=== PATIENT | female | born 1960 | race Caucasian/White ===

== ENCOUNTER 2025-06-23 06:27 | Inpatient (IN) | payer MEDICARE, OTHER ==
[~2025-06-23] VITALS: Ht 165.1 cm; Wt 56.2 kg
[2025-06-23] MEDS ORDERED: LIDOCAINE 1%-EPI 1:100,000 20 ML VIAL ONE (06:49)
[2025-06-23] MEDS ORDERED: FENTANYL PF 250MCG/5ML AMPUL ONE (07:07)
[2025-06-23] MEDS ORDERED: ROCURONIUM BROMIDE 50 MG/5 ML ONE (07:08)
[2025-06-23] MEDS ORDERED: VANCOMYCIN 1 GM VIAL ONE (07:20)
[2025-06-23] MEDS ORDERED: GENTAMICIN 80 MG/2 ML VIAL ONE (07:20)
[2025-06-23] MEDS ORDERED: FENTANYL PF 100MCG/2ML AMPUL ONE (10:18)
[2025-06-23] MEDS ORDERED: IBUPROFEN 400 MG TABLET PO PRN (11:00)
[2025-06-23] MEDS ORDERED: [UNRECOGNIZED DRUG - OTHER] PO (13:43)
[2025-06-23] MEDS ORDERED: SITA100T PO (13:43)
[2025-06-23] MEDS ORDERED: SIMV-46 PO (13:43)
[2025-06-23] MEDS ORDERED: METF-442 PO (13:43)
[2025-06-23] MEDS ORDERED: FLUT1BLS INH (13:43)
[2025-06-23] MEDS ORDERED: MAGNESIUM HYDROXIDE 30 ML UDC PO PRN (14:00)
[2025-06-23] MEDS ORDERED: HYDROCODONE/APAP 5/325MG TABLET PO PRN (14:00)
[2025-06-23] MEDS ORDERED: MAG HYDROX/AL HYDROX/SIMETH 30 ML UDC PO PRN (14:00)
[2025-06-23] MEDS ORDERED: IV NS 0.9% 1,000 ML IV PRN (14:00)
[2025-06-23] MEDS ORDERED: Z GUARD REMEDY 4 OZ OINT TP PRN (14:00)
[2025-06-23] MEDS ORDERED: DEXTROSE 50%-WATER 50 ML DISP.SYRIN IV PRN (14:00)
[2025-06-23] MEDS ORDERED: ONDANSETRON HCL/PF 4 MG/2 ML VIAL IVP PRN (14:00)
[2025-06-23] MEDS ORDERED: ACETAMINOPHEN 325 MG TABLET PO PRN (14:00)
[2025-06-23] MEDS: HYDROCODONE/APAP 10/325MG TABLET PO PRN (14:17)
[2025-06-23] MEDS: PANTOPRAZOLE 40 MG TABLET.DR PO SCH (14:18)
[2025-06-23] MEDS: BLOOD SUGAR DIAGNOSTIC 1 EACH STRIP IN SCH (16:49)
[2025-06-23] MEDS: INSULIN REGULAR, HUMAN 100 UNIT/ML 3 ML VIAL SQ PRN (16:50)
[2025-06-23 17:02] VITALS: BP 121/66; TEMP 98.1; O2SAT 97
[2025-06-23] MEDS ORDERED: HYDR-3972 PO (18:25)
== END 2025-06-23 18:37 | disposition home or self-care (01) | DRG 585 ==
LOC: DS 06:27 → MED 10:48
PROVIDERS: ADMIT Nurse Practitioner Acute Care; ATTEND Nurse Practitioner Acute Care
PROC: 0HRT07Z Replacement of Right Breast with Autologous Tissue Substitute, Open Approach (ICD-10-PCS; 2025-06-23)
PROC: 0HPU0NZ Removal of Tissue Expander from Left Breast, Open Approach (ICD-10-PCS; principal; 2025-06-23 07:30)
PROC: 0HHU0NZ Insertion of Tissue Expander into Left Breast, Open Approach (ICD-10-PCS; 2025-06-23 07:30)
DX: N64.4 Mastodynia (principal); E11.9 Type 2 diabetes mellitus without complications; Z98.82 Breast implant status; Z85.3 Personal history of malignant neoplasm of breast; Z90.11 Acquired absence of right breast and nipple; Z79.84 Long term (current) use of oral hypoglycemic drugs; Z79.899 Other long term (current) drug therapy
CPT/HCPCS: 82962-TC; A4223; A6223; C1789; G0378; J0461; J0690; J1580; J1644; J1815; J1885; J2405; J2704; J3010; J3373; J3490; J7030